=== PATIENT | female | born 1965 | race Caucasian/White ===

== ENCOUNTER 2018-12-20 09:34 | Day surgery (SDC) | payer MEDICAID ==
[~2018-12-20] VITALS: Ht 157.5 cm; Wt 73.5 kg
[2018-12-20] MEDS ORDERED: METF500T2 PO (12:26)
[2018-12-20] MEDS ORDERED: GLIP10TE PO (12:26)
[2018-12-20] MEDS ORDERED: fentaNYL 0.05 MG/ML VIAL ONE (13:35)
[2018-12-20] MEDS ORDERED: LIDOCAINE 2% 100 MG/5 ML UJET TP ONE (13:35)
[2018-12-20] MEDS ORDERED: fentaNYL 0.05 MG/ML VIAL IVP ONE (13:55)
== END 2018-12-20 14:13 | disposition home or self-care (01) ==
LOC: MMU 09:34 → MOR 09:34
PROVIDERS: ATTEND Internal Medicine Gastroenterology
DX: R19.7 Diarrhea, unspecified (principal); I10 Essential (primary) hypertension; E11.9 Type 2 diabetes mellitus without complications; E78.00 Pure hypercholesterolemia, unspecified; E66.3 Overweight; Z98.890 Other specified postprocedural states; Z79.82 Long term (current) use of aspirin; Z79.4 Long term (current) use of insulin; Z79.899 Other long term (current) drug therapy
CPT/HCPCS: 45331; 88305; J3010